=== PATIENT | female | born 1975 | race African-American/Black ===

== ENCOUNTER 2018-11-15 22:30 | Outpatient (CLI) | payer MEDICAID ==
[2018-11-16 00:49] VITALS: BP 127/59
[2018-11-16 02:08] LABS: Amorphous Crystals,Urine 1+; Bacteria,Urine 2+ /HPF (Negative); Bilirubin,Urine NEG (Negative); Blood,Urine NEG (Negative); Color,Urine Yellow (Yellow); Hyaline Casts,Urine 1 /LPF; Protein,Urine <15 mg/dL mg/dL (Negative); Urobilinogen,Urine < 2.0 mg/dL (<2.0)
== END 2018-11-16 02:46 | disposition home or self-care (01) ==
LOC: TRG 22:30
PROVIDERS: ATTEND Obstetrics & Gynecology
DX: O62.8 Other abnormalities of forces of labor (principal); Z3A.37 37 weeks gestation of pregnancy
CPT/HCPCS: 59025; 81001

== ENCOUNTER 2018-11-25 04:08 | Inpatient (IN) | payer MEDICAID ==
[2018-11-25] MEDS ORDERED: LACTATED RINGERS 1,000 ML ONE ×2 (04:14→05:20)
[2018-11-25] MEDS ORDERED: SUBLIMAZE IV PRN (04:23)
[2018-11-25] MEDS ORDERED: AMPICILLIN/NS 2 GM/100 ML 2 GM/100 ML BAG IV ONE (04:23)
[2018-11-25] MEDS ORDERED: BRETHINE SUB-Q PRN (04:23)
[2018-11-25] MEDS ORDERED: XYLOCAINE 2% INFILTRATI ONE (04:23)
--- NOTE | 2018-11-25 04:29 | History and Physical Report ---
History of Present Illness Date of examination: 11/25/18 Date of admission: 11/25/18 04:08 Chief complaint: Labor History of present illness: 43 year old female presents to L&D in active labor. Patient states her water broke around 3:15 AM and fluid was clear. Patient denies vaginal bleeding. Patient states she has received care at [facility]; records are not available. Records will be requested when office opens today. LMP 02/19/18. EDC 12/01/18. Patient states her has been uncomplicated. labs are not available and these have been drawn upon admission. 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 denies: smoking, prescription drug abuse, IV drug use - Obstetrical History Expected Date of Delivery: 11/25/18 Actual Gestation: 40 Week(s) 0 Day(s) : 3 Para: 2 Hx # Term Pregnancies: 3 Number of Pregnancies: 0 Spontaneous Abortions: 0 Induced : 0 Number of Living Children: 2 Medications and Allergies Allergies Allergy/AdvReac Type Severity Reaction Status Date / Time No Known Allergies Allergy Verified 11/25/18 04:17 Home Medications Medication Instructions Recorded Confirmed Last Taken Type Ibuprofen [Motrin 600 MG tab] 600 mg PO Q6HR #30 tablet 03/04/16 Unknown Rx Active Meds: Active Medications Ephedrine Sulfate (Ephedrine Sulfate) 10 mg IV Q2M PRN PRN Reason: Hypotension Fentanyl (Sublimaze) 100 mcg IV Q2H PRN PRN Reason: Labor Pain Oxytocin/Sodium Chloride (Pitocin/Ns 20 Unit/1000ml Drip) 20 units in 1,000 mls @ 125 mls/hr IV DIRECT NEIL Lactated Ringer's (Lactated Ringers) 1,000 mls @ 125 mls/hr IV DIRECT NEIL Ampicillin Sodium (Polycillin/Ns 2 Gm/100 Ml) 2 gm in 100 mls @ 100 mls/hr IV ONCE ONE; Protocol Stop: 11/25/18 05:22 Oxytocin/Sodium Chloride (Pitocin/Ns 30 Unit/500ml) 30 units in 500 mls @ 1 mls/hr IV TITR NEIL; Protocol Ampicillin Sodium (Ampicillin/Ns 1 Gm/50 Ml) 1 gm in 50 mls @ 100 mls/hr IV Q4HR NEIL; Protocol Lidocaine (Xylocaine 2%) 20 ml INFILTRATI ONCE ONE Stop: 11/25/18 04:24 Terbutaline Sulfate (Brethine) 0.25 mg SUB-Q ONCE PRN PRN Reason: Hyperstimulation/Hypertonicity Review of Systems All systems: negative (contractions and leaking of fluid from vagina) - Physical Exam Abdomen: Positive: normal appearance, soft, normal bowel sounds. Negative: distention, tenderness, rigidity Genitourinary (Female): Positive: normal external genitalia, normal perenium. Negative: perineal/vulvar lesions Uterus: Positive: enlarged Anus/Rectum: Positive: normal perianal skin Extremities: Positive: normal. Negative: tenderness, edema - Obstetrical FHR: category 2 Uterine Contraction Monitor Mode: External Cervical Dilatation: 8 Cervical Effacement Percentage: 100 station: -2 Uterine Contraction Pattern: Regular Uterine Contraction Intensity: Moderate Results All other labs normal. Assessment and Plan A: at 39 1/7 weeks gestation. Active advanced labor. GBS unknown. labs not available. P: Admit. GBS prophylaxis. EFM. Anticipate vaginal .
[2018-11-25] MEDS ORDERED: PITOCin/NS 20 UNIT/1000ML DRIP 20 UNITS/1,000 ML BAG IV SCH ×3 (05:00→15:00)
[2018-11-25] MEDS ORDERED: PITOCin/NS 30 UNIT/500ML 30 UNITS/500 ML BAG IV SCH (05:00)
[2018-11-25 05:08] LABS: Hemoglobin 11.3 gm/dl (10.1-14.3); Mean Corpuscular HGB Conc 33 % (30-34); Mean Corpuscular Volume 79 fl (79-97); Platelet Count 230 K/mm3 (140-440); Red Blood Count 4.31 M/mm3 (3.65-5.03); Red Cell Distribution Width 15.7 % (13.2-15.2)
[2018-11-25] MEDS ORDERED: NARCAN 2 MG/2 ML IV PRN (06:02)
[2018-11-25 06:04] LABS: Hepatitis C Virus Antibody Non-Reactive (NonReactive)
--- NOTE | 2018-11-25 06:04 | Anesthesia Consultation ---
Anesthesia Consult and Med Hx Date of service: 11/25/18 - Airway Anesthetic Teeth Evaluation: Good ROM Head & Neck: Adequate Mental/Hyoid Distance: Adequate Mallampati Class: Class II Intubation Access Assessment: Probably Good - Pulmonary Exam CTA: Yes - Cardiac Exam Cardiac Exam: RRR - Pre-Operative Health Status ASA Pre-Surgery Classification: ASA3 Proposed Anesthetic Plan: Epidural - Pulmonary Hx Smoking: No Hx Asthma: No Hx Respiratory Symptoms: No SOB: No COPD: No Home Oxygen Therapy: No Hx Pneumonia: No Hx Sleep Apnea: No - Cardiovascular System Hx Hypertension: No Hx Coronary Artery Disease: No Hx Heart Attack/AMI: No Hx Angina: No Hx Percutaneous Transluminal Coronary Angioplasty (PTCA): No Hx Cardia Arrhythmia: No Hx Pacemaker: No Hx Internal Defibrillator: No Hx Valvular Heart Disease: No Hx Heart Murmur: No Hx Peripheral Vascular Disease: No - Central Nervous System Hx Neuromuscular Disorder: No Hx Seizures: No CVA: No Hx Back Pain: No Hx Psychiatric Problems: No - Gastrointestinal Hx Ulcer: No Hx Gastroesophageal Reflux Disease: Yes - Endocrine Hx Renal Disease: No Hx End Stage Renal Disease: No Hx Cirrhosis: No Hx Liver Disease: No Hx Insulin Dependent Diabetes: No Hx Non-Insulin Dependent Diabetes: No Hx Thyroid Disease: No Hx Hypothyroidism: No Hx Hyperthyroidism: No - Hematic Hx Anemia: No Hx Sickle Cell Disease: No - Other Systems Hx Alcohol Use: No Hx Substance Use: No Hx Cancer: No Hx Obesity: Yes (BMI 36.6)
--- NOTE | 2018-11-25 06:05 | Post Anesthesia Evaluation ---
- Post Anesthesia Evaluation Patient Participated: Yes Airway Patent: Yes Stable Respiratory Function: Yes Nausea/Vomiting: No Temp > 96.8F: Yes Pain Manageable: Yes Adequeate Hydration: Yes Anesthesia Complications: No Block Receding Appropriately: Yes Patient on Ventilator: No
--- NOTE | 2018-11-25 06:05 | Anesthesia Day of Surgery ---
Anesthesia Day of Surgery - Day of Surgery Patient Examined: Yes Patient H&P Reviewed: Yes Patient is NPO: Yes Beta Blockers: No Cardiac Clearance: No Pulmonary Clearance: No Fernando's Test: N/A
[2018-11-25] MEDS ORDERED: fentaNYL-BUPIV 2 MCG/ML-0.125% 200 MCG/100 ML BAG EPIDURAL SCH (07:00)
--- NOTE | 2018-11-25 07:02 | Ultrasound Report ---
PROCEDURE: US OB FOLLOW UP TECHNIQUE: Limited third trimester grayscale, color Doppler and M-mode OB ultrasound HISTORY: EFW COMPARISONS: None provided FINDINGS: Single living intrauterine with recorded cardiac activity 146 beats per. Cephalic presentation. Anterior placenta without evident previa on this exam. Amniotic fluid index me asures 9.6 cm. Biparietal diameter is 9.5 cm Head circumference is 35.6 cm Abdominal circumference is 35.5 cm Femoral length is 6.9 cm Composite of the biometric measurements results in estimated gestational age of 38 weeks 5 days , which is concordant with reported clinical dating of 39 weeks 1 day. Estimated weight is 3563 g, which corresponds to the 59th percentile. IMPRESSION: Single living intrauterine with concordant size and dates and estimated weight of 356 3 g, which corresponds to the 59th percentile. This document is electronically signed by Ha Schmidt MD., Nov 25 2018 07:00:39 AM ET
[2018-11-25] MEDS: LACTATED RINGERS 1,000 ML IV SCH (07:22)
[2018-11-25] MEDS ORDERED: MARCAINE 0.25% INFILTRATI ONE (08:11)
--- NOTE | 2018-11-25 08:19 | Event Note ---
Date: 11/25/18 Patient came in with SROM this morning and was 8 cm on SVE at admission exam by CNM. She progressed slowly to complete. At complete dilation patient was 0 station. Patient was positoned in upright position with lateral tilt to labor down. After over an hour of laboring down, patient began to feel strong urge to push. Patient pushed with contractions intermittently for about 35 minutes. With descent of head to +1 station, deep variable FHR decelerations noted, decreasing to 60s-80s with return to baseline. Minimal to moderate variability. Oxygen applied per face mask at 10 LPM. Patient encouraged to rest and avoid pushing and MD notified to come and evaluate heart rate tracing and expedite delivery. Notified oncoming wind farm designer, education counselor MD, and oncoming MD of situation. Lab notified us of rapid HIV positive test; patient denies history of HIV and states she has had 2 negative HIV tests during this . Will request records from [facility] as soon as the office opens. Continuous EFM and oxygen per face mask. Position change to encourage head to rotate.
[2018-11-25] MEDS ORDERED: AMPICILLIN/NS 1 GM/50 ML 1 GM/50 ML BAG IV SCH (08:28)
[2018-11-25] MEDS ORDERED: REGLAN IV ONE (10:00)
[2018-11-25] MEDS ORDERED: ANCEF/STERILE WATER 2 GM/20 ML 2 GM/20 ML SYRINGE IV NR (10:00)
[2018-11-25] MEDS ORDERED: PEPCID IV ONE ×2 (10:00→10:18)
[2018-11-25] MEDS ORDERED: BICITRA PO ONE (10:00)
[2018-11-25] MEDS ORDERED: LACTATED RINGERS 1,000 ML IV SCH (10:00)
[2018-11-25] MEDS ORDERED: XYLOCAINE 2%/ EPI 1:200,000 INFILTRATI ONE (10:06)
[2018-11-25] MEDS ORDERED: REGLAN ONE (10:17)
[2018-11-25] MEDS ORDERED: BICITRA ONE (10:17)
[2018-11-25] MEDS ORDERED: METHERGINE IM ONE ×2 (10:18→15:00)
[2018-11-25] MEDS ORDERED: ANCEF/STERILE WATER 2 GM/20 ML 2 GM/20 ML SYRINGE IV ONE (10:18)
[2018-11-25] MEDS ORDERED: HEMABATE IM ONE (10:19)
--- NOTE | 2018-11-25 10:23 | Progress Note ---
Assessment and Plan - Patient Problems (1) 39 weeks gestation of Current Visit: Yes Status: Acute (2) Non-reassuring electronic monitoring tracing Current Visit: Yes Status: Acute Plan to address problem: I counselled the patient for C/section. Risks and benefits of the procedure were discussed with her such as infection, hemorrhage requiring blood transfusion, injury to the bowel, bladder and blood vessels. She expressed understanding, her questions were answered, she gave her informed consent. Keep NPO. Anesthesia has been notified. Epidural in place. Continue monitoring. (3) Advanced maternal age (AMA) in Current Visit: Yes Status: Acute (4) Obesity Current Visit: Yes Status: Acute Qualifiers: Obesity type: due to excess calories (5) HIV antibody positive Current Visit: Yes Status: Acute Plan to address problem: This result was discussed with the patient. She was told that since she came in active labor with membranes rupture for over 3 hours, C/section would not change in outcome for the baby in case her confirmatory is positive. However, she is having the C/section for distress. She expressed understanding. Her records were requested from [facility] and still are not received yet. P24 antigen was negative. Confirmatory HIV DNA is pending. NICU was made aware. Nurse practitioner Karina came and spoke with the patient about treating the baby while confirmatory HIV DNA is pending Subjective - Subjective Date of service: 11/25/18 Principal diagnosis: SIUP at 39 weeks and 1 day in active labor. Interval history: Patient is a 43 year old , EDC 12/01/18 at 39 weeks and 1 day gestation who was admitted earlier this AM in active labor at 8 cm dilatation and SROM with clear fluid at 3:30 AM. She is a patient of [facility] whose records were not available on admission. Therefore, routine labs were sent. Rapid HIV was reactive. Patient denies any risk factor such as history of blood transfusion, IV drug abuse, needle stick. She is only sexually active with her . She stated that during her , all her tests were normal and she was tested for HIV on 11/07/18 and it was negative. P24 antigen is negative. Confirmatory HIV DNA were sent. I was asked to assess the patient for variables decelerations by the package dye stand loader. I found her lying on her right side with epidural in place. tracing showed repetitive late decelerations. Cervix: fully dilated with the vertex at -1 station. left sided-position, O2 via face mask, IV bolus were given. The the tracing is still CAT3. Objective - Vital Signs Vital Signs: Vital Signs - 12hr 11/25/18 11/25/18 11/25/18 05:45 05:46 05:49 Temperature Pulse Rate 62 67 80 Respiratory Rate Blood Pressure 133/63 124/56 O2 Sat by Pulse 100 Oximetry 11/25/18 11/25/18 11/25/18 05:50 05:52 05:55 Temperature Pulse Rate 86 88 82 Respiratory Rate Blood Pressure 124/63 115/57 O2 Sat by Pulse 100 Oximetry 11/25/18 11/25/18 11/25/18 05:58 06:01 06:03 Temperature Pulse Rate 91 H 79 78 Respiratory Rate Blood Pressure 125/64 108/54 118/56 O2 Sat by Pulse Oximetry 11/25/18 11/25/18 11/25/18 06:07 06:08 06:10 Temperature Pulse Rate 160 H 82 86 Respiratory Rate Blood Pressure 125/60 127/64 O2 Sat by Pulse 100 Oximetry 11/25/18 11/25/18 11/25/18 06:13 06:17 06:18 Temperature Pulse Rate 79 137 H 84 Respiratory Rate Blood Pressure 130/56 107/49 O2 Sat by Pulse 100 100 Oximetry 11/25/18 11/25/18 11/25/18 06:19 06:23 06:28 Temperature Pulse Rate 150 H 64 72 Respiratory Rate Blood Pressure 112/78 O2 Sat by Pulse 77 L 96 Oximetry 11/25/18 11/25/18 11/25/18 06:29 06:33 06:34 Temperature Pulse Rate 65 74 141 H Respiratory Rate Blood Pressure 114/62 O2 Sat by Pulse 91 100 Oximetry 11/25/18 11/25/18 11/25/18 06:37 06:38 06:40 Temperature Pulse Rate 71 82 87 Respiratory Rate Blood Pressure 119/67 122/69 O2 Sat by Pulse 100 Oximetry 11/25/18 11/25/18 11/25/18 06:43 06:46 06:48 Temperature Pulse Rate 78 79 83 Respiratory Rate Blood Pressure 112/67 122/76 O2 Sat by Pulse 100 100 Oximetry 11/25/18 11/25/18 11/25/18 06:49 06:52 06:53 Temperature Pulse Rate 81 78 78 Respiratory Rate Blood Pressure 128/72 132/72 O2 Sat by Pulse 100 Oximetry 11/25/18 11/25/18 11/25/18 06:55 06:58 07:01 Temperature Pulse Rate 72 77 76 Respiratory Rate Blood Pressure 132/70 140/68 144/68 O2 Sat by Pulse 100 Oximetry 11/25/18 11/25/18 11/25/18 07:03 07:05 07:07 Temperature Pulse Rate 74 80 80 Respiratory Rate Blood Pressure 143/99 139/62 O2 Sat by Pulse 100 Oximetry 11/25/18 11/25/18 11/25/18 07:08 07:10 07:13 Temperature Pulse Rate 82 76 85 Respiratory Rate Blood Pressure 139/63 O2 Sat by Pulse 100 100 Oximetry 11/25/18 11/25/18 11/25/18 07:14 07:16 07:18 Temperature 97.8 F Pulse Rate 82 87 82 Respiratory 22 Rate Blood Pressure 153/63 131/63 O2 Sat by Pulse 99 100 Oximetry 11/25/18 11/25/18 11/25/18 07:19 07:22 07:23 Temperature Pulse Rate 77 78 84 Respiratory Rate Blood Pressure 128/60 128/68 O2 Sat by Pulse 100 Oximetry 11/25/18 11/25/18 11/25/18 07:25 07:28 07:29 Temperature Pulse Rate 80 84 86 Respiratory Rate Blood Pressure 124/81 138/60 O2 Sat by Pulse 99 Oximetry 11/25/18 11/25/18 11/25/18 07:31 07:37 07:40 Temperature Pulse Rate 106 H 83 84 Respiratory Rate Blood Pressure 164/88 119/58 138/67 O2 Sat by Pulse Oximetry 11/25/18 11/25/18 11/25/18 07:43 07:46 07:49 Temperature Pulse Rate 81 82 107 H Respiratory Rate Blood Pressure 129/61 126/58 139/61 O2 Sat by Pulse Oximetry 11/25/18 11/25/18 11/25/18 07:52 07:56 07:58 Temperature Pulse Rate 100 H 96 H 96 H Respiratory Rate Blood Pressure 140/63 156/76 138/61 O2 Sat by Pulse Oximetry 11/25/18 11/25/18 11/25/18 08:02 08:05 08:07 Temperature Pulse Rate 95 H 86 93 H Respiratory Rate Blood Pressure 161/73 135/59 162/74 O2 Sat by Pulse Oximetry 11/25/18 11/25/18 05/ 08:10 08:14 08:16 Temperature Pulse Rate 95 H 88 85 Respiratory Rate Blood Pressure 131/57 158/63 135/64 O2 Sat by Pulse Oximetry 11/25/18 11/25/18 05 08:19 08:22 08:25 Temperature Pulse Rate 100 H 102 H 103 H Respiratory Rate Blood Pressure 140/63 140/64 135/58 O2 Sat by Pulse Oximetry 11/25/18 11/25/18/ 08:28 08:31 08:38 Temperature Pulse Rate 98 H 97 H 97 H Respiratory Rate Blood Pressure 124/56 131/58 141/72 O2 Sat by Pulse Oximetry 11/25/18 11/25/18 11/25/18 08:40 08:43 08:46 Temperature Pulse Rate 102 H 86 83 Respiratory Rate Blood Pressure 136/57 127/60 116/56 O2 Sat by Pulse Oximetry 11/25/18 11/25/18 11/25/18 08:49 08:52 08:55 Temperature Pulse Rate 107 H 105 H 101 H Respiratory Rate Blood Pressure 118/72 114/58 121/62 O2 Sat by Pulse Oximetry 11/25/18 11/25/18 05 08:58 09:01 09:04 Temperature Pulse Rate 99 H 88 110 H Respiratory Rate Blood Pressure 114/67 125/68 118/64 O2 Sat by Pulse Oximetry 11/25/18 11/25/18 05 09:06 09:07 09:10 Temperature Pulse Rate 87 93 H 93 H Respiratory Rate Blood Pressure 109/65 110/57 114/57 O2 Sat by Pulse Oximetry 11/25/18 11/25/18 05 09:13 09:16 09:19 Temperature Pulse Rate 109 H 123 H 117 H Respiratory Rate Blood Pressure 112/54 112/67 124/55 O2 Sat by Pulse Oximetry 11/25/18 11/25/18 05 09:22 09:25 09:28 Temperature Pulse Rate 116 H 120 H 133 H Respiratory Rate Blood Pressure 113/58 106/57 109/58 O2 Sat by Pulse Oximetry 11/25/18 11/25/18 05 09:31 09:34 09:37 Temperature Pulse Rate 137 H 133 H 123 H Respiratory Rate Blood Pressure 110/57 110/60 139/77 O2 Sat by Pulse Oximetry 11/25/18 11/25/18 11/25/18 09:40 09:46 09:49 Temperature Pulse Rate 114 H 114 H 110 H Respiratory Rate Blood Pressure 110/53 114/53 106/51 O2 Sat by Pulse Oximetry 11/25/18 11/25/18 11/25/18 09:52 09:55 09:58 Temperature Pulse Rate 116 H 111 H 116 H Respiratory Rate Blood Pressure 108/53 95/48 96/50 O2 Sat by Pulse Oximetry 11/25/18 10:01 Temperature Pulse Rate 110 H Respiratory Rate Blood Pressure 98/56 O2 Sat by Pulse Oximetry - Exam Cardiovascular: Normal S1, Normal S2 Lungs: Clear to auscultation Vulva: both: normal FHR: category 3 Uterine Contraction Monitor Mode: External Cervical Dilatation: 10 Cervical Effacement Percentage: 100 station: -1 Uterine Contraction Pattern: Regular Uterine Contraction Intensity: Strong/Firm Deep Tendon Reflex Grade: Normal +2 - Labs Labs: Abnormal Labs 11/25/18 04:20 MCH 26 L RDW 15.7 H Laboratory Results - last 24 hr 11/25/18 11/25/18 11/25/18 04:20 04:20 04:20 WBC 9.9 RBC 4.31 Hgb 11.3 Hct 34.0 MCV 79 MCH 26 L MCHC 33 RDW 15.7 H Plt Count 230 Hemoglobin A1c Hep Bs Antigen Non-reactive Hepatitis C Antibody Non-reactive HIV 1&2 Antibody Rapid Reactive HIV P24 Antigen Non react Rubella IgG Antibody Immune Blood Type 11/25/18 11/25/18 04:20 04:20 WBC RBC Hgb Hct MCV MCH MCHC RDW Plt Count Hemoglobin A1c 5.5 Hep Bs Antigen Hepatitis C Antibody HIV 1&2 Antibody Rapid HIV P24 Antigen Rubella IgG Antibody Blood Type O POSITIVE - Results US- obstetric: report reviewed
[2018-11-25] MEDS ORDERED: SODIUM BICARBONATE IV ONE (11:02)
[2018-11-25] MEDS ORDERED: NACL 0.9% IR ONE (11:30)
[2018-11-25] MEDS ORDERED: WATER FOR IRRIG STERILE IR ONE (11:30)
[2018-11-25] MEDS ORDERED: TORADOL ONE (11:41)
[2018-11-25] MEDS ORDERED: PHENERGAN PR PRN (11:46)
[2018-11-25] MEDS ORDERED: TUCKS PAD TP PRN (11:46)
[2018-11-25] MEDS ORDERED: LANSINOH TP PRN (11:46)
[2018-11-25] MEDS ORDERED: MORPHINE IV PRN ×2 (11:46)
[2018-11-25] MEDS ORDERED: SENOKOT PO PRN (11:46)
[2018-11-25] MEDS ORDERED: TYLENOL PO PRN (11:46)
[2018-11-25] MEDS ORDERED: MYLICON PO PRN (11:46)
[2018-11-25] MEDS ORDERED: TORADOL IV PRN (11:46)
[2018-11-25] MEDS ORDERED: ANUCORT-HC PR PRN (11:46)
[2018-11-25] MEDS ORDERED: ZOFRAN IV PRN (11:46)
[2018-11-25] MEDS ORDERED: NARCAN 0.4 MG/1 ML IV PRN (11:46)
[2018-11-25] MEDS ORDERED: MILK OF MAGNESIA PO PRN (11:46)
--- NOTE | 2018-11-25 11:53 | Operative Report ---
Operative Report Operative Report: Preoperative diagnosis 1. SIUP at 39 weeks and 1 day gestation in active labor. 2. CAT3 tracing. Postoperative diagnosis: Same. Procedure: Primary low-transverse section. Surgeon: Dr. Brunner Loom Doffer: none Anesthesia: epidural. IVF: RL 1.5 liters EBL: 600 cc Urine: 200 cc clear Complications: none Intraoperative findings: 1. A male found in an ARIA position, tight nuchal cord 1, delivered at 10:54 AM, Apgars 7 at 1 minute and 9 at 5 minutes, weight 8 lbs. 11 oz. 2. Normal fallopian tubes and ovaries bilaterally. Procedure details: Risks, benefits, and alternatives of the procedure were discussed in detail with the patient which included but not limited to the risk of infection, hemorrhage requiring blood transfusion, injury to the bowel or bladder and blood vessels. The patient expressed understanding, her questions were answered, and she gave informed consent. The patient was taken to the operating room with an IV fluid infusing Ringers lactate. In the operating room, she was placed in a dorsal supine position with a leftward tilt. She was loaded with epidural anesthesia. Ricardo catheter in Venodyne boots were placed. The abdomen was washed and she was prepared and draped in usual sterile fashion. After confirming adequate epidural anesthesia, the Pfannenstiel skin incision was made in the lower abdomen about 2 cm above the pubic symphysis using the scalpel. This incision was carried down to the underlying fascia using the Bovie. The fascia was opened bilaterally in a curvilinear fashion using the Bovie. 2 straight Kocker clamps were used to grasp the upper edge of the fascia from which the underlying rectus abdominis muscles was dissected off using the Bovie. A similar procedure was done with the lower edge of the fascia to dissect the underlying rectus abdominis muscle. The muscle was bluntly from the midline by pulling. The parietal peritoneum was grasped with 2 hemostat clamps and entered sharply using Metzenbaum scissors. A quick survey of the anatomy revealed a gravid uterus, normal fallopian tubes and ovaries bilaterally. A bladder flap was created. Shayne'O retractor was placed in the incision for proper visualization. A low transverse incision was made in the lower uterine segment using the scalpel and extended bilaterally in a curvilinear fashion using bandage scissors. There was scant amount of clear amniotic fluid as the membranes have been ruptured during the labor. The infant was found in an ARIA position, the head was delivered atraumatically followed by the delivery of the shoulders and the rest of the body at 10:54 AM. There was tight nuchal cord 1. The cord was clamped 2 and cut and the was handed off to the waiting telephone cleaner. The infant was a male, Apgars were 7 at 1 minute and 9 at 5 minutes, weight was 8 pounds and 11 ounces. Cord blood was collected. The placenta was delivered manually and it was complete with a three-vessel cord. The uterine cavity was cleaned of clots and debris using dry lap sponges. The uterine incision was repaired in a running locked fashion using 0 Vicryl sutures. A second layer of imbrication was placed. The gutters were cleaned of clots and debris using dry lap sponges. After confirming adequate hemostasis, the instruments were removed from the abdominal cavity. The rectus muscle was reapproximated in an interrupted fashion using 0 Vicryl sutures. The fascia was closed in a running fashion using 0 Vicryl sutures. The subcutaneous adipose layer was closed with 2.0 chromic sutures. The skin was closed with dirk. Sterile dressing was placed. The counts of laps, needles, sponges, and instruments were correct 2. The patient tolerated the procedure well, she was taken to the recovery room in a stable condition.
[2018-11-25] MEDS ORDERED: SODIUM CHLORIDE FLUSH SYRINGE 10 ML IV NR (12:00)
--- NOTE | 2018-11-25 14:49 | Post Anesthesia Evaluation ---
- Post Anesthesia Evaluation Patient Participated: Yes Airway Patent: Yes Stable Respiratory Function: Yes Nausea/Vomiting: Yes Temp > 96.8F: Yes Pain Manageable: Yes Adequeate Hydration: Yes Anesthesia Complications: No Block Receding Appropriately: Yes Patient on Ventilator: No
[2018-11-25] MEDS: TORADOL IV PRN (16:06)
[2018-11-25] MEDS: PERCOCET 5/325 PO PRN (20:19)
[2018-11-25 23:55] LABS: Hematocrit 26.8 % (30.3-42.9); Hemoglobin 8.8 gm/dl (10.1-14.3)
[2018-11-26] MEDS: TORADOL IV PRN ×2 (00:06→09:24)
[2018-11-26] MEDS: LACTATED RINGERS 1,000 ML IV SCH (01:50)
[2018-11-26] MEDS: PERCOCET 5/325 PO PRN ×3 (04:50→21:41)
[2018-11-26] MEDS: PRENATAL VITAMIN PO SCH (09:23)
[2018-11-26] MEDS ORDERED: METHERGINE IM ONE (10:00)
[2018-11-26] MEDS ORDERED: FEOSOL PO SCH (10:00)
[2018-11-26] MEDS ORDERED: INFED IM NR (10:30)
--- NOTE | 2018-11-26 11:25 | Progress Note ---
Assessment and Plan - Patient Problems (1) S/P section Current Visit: Yes Status: Acute Plan to address problem: Continue routine PP orders Keep dressing clean and dry Anticipate d/c home in 48 hrs (2) HIV antibody positive Current Visit: Yes Status: Acute Plan to address problem: Awaiting HIV DNA confirmation results (3) Obesity Current Visit: Yes Status: Acute Qualifiers: Obesity type: unspecified obesity type Obesity classification: unspecified obesity classification (4) Advanced maternal age (AMA) in Current Visit: Yes Status: Acute Subjective - Subjective Date of service: 11/26/18 Principal diagnosis: S/P C/S delivery at term Interval history: See admission H & P, OB delivery summary and PP progress notes Patient reports: appetite normal, voiding normally, pain well controlled, fl atus, pain poorly controlled (with medications), ambulating normally (but slowly), no bowel movement [place]: bottle feeding Objective - Vital Signs Latest vital signs: Vital Signs Temp Pulse Resp BP BP Pulse Ox 11/26/18 09:24 20 11/26/18 08:53 98.6 F 85 22 105/56 97 11/26/18 04:47 98.0 F 16 117/70 11/26/18 00:11 98.6 F 103/58 11/25/18 21:12 98.6 F 18 102/57 11/25/18 16:06 18 11/25/18 15:59 98.1 F 94 H 18 119/61 96 11/25/18 13:40 97.5 F L 95 H 16 115/55 97 11/25/18 13:05 98.9 F 99 H 24 135/76 98 11/25/18 13:00 90 22 132/75 97 11/25/18 12:45 89 22 144/79 97 11/25/18 12:30 92 H 22 144/80 97 11/25/18 12:15 105 H 22 141/83 97 11/25/18 12:05 95 H 22 131/50 97 11/25/18 12:00 96 H 20 120/69 96 11/25/18 11:55 97.7 F 98 H 20 111/60 96 Intake and Output 11/25/18 11/26/18 11/26/18 23:59 07:59 15:59 Intake Total 200 360 Output Total 1150 800 Balance -950 -800 360 Intake: Oral 200 120 Intake, Free Water 240 Output: Urine 1150 800 Indwelling Catheter 1150 Void 800 Other: Total, Intake Amount 200 120 Total, Output Amount 700 800 # Voids Void 1 1 - Exam Breasts: Present: deferred Cardiovascular: Present: Regular rate Lungs: Present: Normal air movement Abdomen: Present: soft, tenderness, normal bowel sounds Uterus: Present: firm, fundal height below umbilicus (U-1) Extremities: Present: normal Deep Tendon Reflex Grade: Normal +2 Incision: Present: dressed (no shawdow bleeding or drainage noted) - Labs Labs: Abnormal lab results 11/25/18 Range/Units 23:03 Hgb 8.8 L (10.1-14.3) gm/dl Hct 26.8 L D (30.3-42.9) %
[2018-11-26] MEDS: IBUPROFEN PO PRN ×2 (16:11→21:42)
[2018-11-26] MEDS: FEOSOL PO SCH (21:39)
[2018-11-27] MEDS: PERCOCET 5/325 PO PRN (06:06)
[2018-11-27] MEDS: IBUPROFEN PO PRN ×3 (06:06→17:56)
[2018-11-27 07:05] LABS: Hematocrit 27.1 % (30.3-42.9); Hemoglobin 8.8 gm/dl (10.1-14.3)
--- NOTE | 2018-11-27 10:23 | Progress Note ---
Assessment and Plan A: POD #2 Stable Anemia P: Follow Routine PostOp Orders D/C Home today per patient request Continue FeSO4 as directed RTO in 1 Week for incision check Subjective - Subjective Date of service: 11/27/18 Principal diagnosis: S/P C/S delivery at term Patient reports: appetite normal, voiding normally, pain well controlled, flatus, ambulating normally : doing well, bottle feeding Objective - Vital Signs Latest vital signs: Vital Signs Temp Pulse Resp BP BP Pulse Ox 11/27/18 08:05 97.6 F 67 16 113/61 96 11/27/18 06:06 18 11/27/18 00:49 98.5 F 78 18 95/53 97 11/26/18 21:42 18 11/26/18 21:41 18 11/26/18 17:03 98.2 F 82 20 117/55 96 11/26/18 16:12 20 11/26/18 16:11 20 11/26/18 12:08 98.8 F 84 22 101/54 95 Intake and Output 11/26/18 11/27/18 11/27/18 22:59 06:59 14:59 Intake Total 720 Balance 720 Intake: Oral 240 Intake, Free Water 480 Other: Total, Intake Amount 240 # Voids Void 2 - Exam Breasts: Present: normal Cardiovascular: Present: Regular rate Lungs: Present: Clear to auscultation, Normal air movement Abdomen: Present: normal appearance, soft Uterus: Present: normal, firm, fundal height below umbilicus Extremities: Present: normal Incision: Present: normal, dry, intact, other (dirk in place) - Labs Labs: Abnormal lab results 11/27/18 Range/Units 06:55 Hgb 8.8 L (10.1-14.3) gm/dl Hct 27.1 L (30.3-42.9) %
[2018-11-27] MEDS: PRENATAL VITAMIN PO SCH (10:51)
[2018-11-27] MEDS: FEOSOL PO SCH ×2 (10:52→22:19)
[2018-11-28] MEDS: IBUPROFEN PO PRN ×2 (02:08→14:05)
[2018-11-28] MEDS: FEOSOL PO SCH (09:58)
[2018-11-28] MEDS: PRENATAL VITAMIN PO SCH (09:58)
--- NOTE | 2018-11-28 11:30 | Progress Note ---
Assessment and Plan (1) S/P section Current Visit: Yes Status: Acute Plan to address problem: Continue routine PP/PO orders Encouraged ambulation in room Pain well controlled Stable D/C home today (2) HIV antibody positive Current Visit: Yes Status: Acute Plan to address problem: Rapid HIV positive x2 HIV DNA confirmation results NEGATIVE Pt informed of these results. Tearful with the news. Reports 2 Negative HIV tests during and only being with her . Informed that peds will decide if treatment will continue with baby. Per consult with Dr. Brunner: will redraw HIV test in 6 weeks. No current treatment recommended. Subjective - Subjective Date of service: 11/28/18 Principal diagnosis: POD#3 s/p Primary c/s at term Patient reports: appetite normal, voiding normally, pain well controlled, flatus, ambulating normally, no bowel movement Ira: doing well, other (pumping breasts with desire to breastfeed) Objective - Vital Signs Latest vital signs: Vital Signs Temp Pulse Resp BP BP Pulse Ox 11/28/18 08:02 98.1 F 72 18 122/63 11/28/18 02:08 18 11/28/18 00:33 98.3 F 76 20 114/59 97 11/27/18 16:21 97.2 F L 86 16 133/66 96 Intake and Output 11/27/18 11/28/18 11/28/18 23:59 07:59 15:59 Intake Total 240 240 Balance 240 240 Intake: Oral 240 240 Other: Total, Intake Amount 240 240 # Voids Void 1 1 - Exam Breasts: Present: normal Cardiovascular: Present: Regular rate, Normal S1, Normal S2, No murmurs Lungs: Present: Clear to auscultation, Normal air movement Abdomen: Present: normal appearance, soft, tenderness (as expected post-op). Absent: distention Vulva: both: normal Uterus: Present: firm, fundal height at umbilicus Extremities: Present: normal, edema (+2) Deep Tendon Reflex Grade: Normal +2 Incision: Present: normal, dry, intact
--- NOTE | 2018-11-28 11:32 | Discharge Summary ---
Providers - Providers Date of Admission: 11/25/18 04:08 Date of discharge: 11/28/18 Attending physician: ANNETTA WOOD MD 11/25/18 15:32 Consult to Case Management [CONS] Routine Services Needed at Discharge: Cleaning Associate Notified:: [id number] Was contact made?: No Primary care physician: RADHA RENAE Hospitalization Reason for admission: active labor, IUP at term Delivery: Procedure: primary low transverse Procedure details: See H&P and delivery note Episiotomy: none Laceration: none Incision: normal, dry, intact Other procedures: none complications: none Discharge diagnosis: IUP at term delivered baby: male Hospital course: Rapid HIV reactive x2. Confirmatory DNA Negative. Condition at discharge: Good Disposition: DC-01 TO HOME OR SELFCARE Plan - Provider Discharge Summary Activity: routine, no sex for 6 weeks, no heavy lifting 4 weeks, no strenuous exercise Diet: routine Instructions: routine Additional instructions: [] Smoking cessation referral if applicable(refer to patient education folder for contact #) [] Refer to [facility] Booklet Call your doctor immediately for: * Fever > 100.5 * Heavy vaginal bleeding ( >1 pad per hour) * Severe persistent headache * Shortness of breath * Reddened, hot, painful area to leg or breast * Drainage or odor from incision. * Keep incision clean and dry at all times and follow doctor's instructions regarding bathing/showering - Follow up plan Follow up: RADHA RENAE MD [Primary Care Provider] - 7 Days
[2018-11-28 14:45] VITALS: BP 113/56
[2018-11-28 21:27] LABS: HIV-1 RNA QN PCR <1.30 Log cps/mL; HIV-1 RNA QN PCR <20 Copies/mL
[2018-11-29 11:52] LABS: HIV-1 Antibody Differentiation SE SCANNED RESULT; HIV-2 Antibody Differentiation SEE SCANNED RESULT
== END 2018-11-28 14:15 | disposition home or self-care (01) | DRG 765 ==
LOC: LD 04:08 → OB 14:06
PROVIDERS: ADMIT Obstetrics & Gynecology; ATTEND Obstetrics & Gynecology
PROC: 10D00Z1 Extraction of Products of Conception, Low, Open Approach (ICD-10-PCS; principal; 2018-11-25)
DX: O99.62 Diseases of the digestive system complicating childbirth (principal); D62 Acute posthemorrhagic anemia; O76 Abnormality in fetal heart rate and rhythm complicating labor and delivery; Z3A.39 39 weeks gestation of pregnancy; Z37.0 Single live birth; K21.9 Gastro-esophageal reflux disease without esophagitis; E66.9 Obesity, unspecified; O69.1XX0 Labor and delivery complicated by cord around neck, with compression, not applicable or unspecified; Z21 Asymptomatic human immunodeficiency virus [HIV] infection status; O99.214 Obesity complicating childbirth; O90.81 Anemia of the puerperium
CPT/HCPCS: 36415; 76816; 83036; 85014; 85018; 85027; 86592; 86689; 86706; 86762; 86803; 86850; 86900; 86901; 87535; 87536; 87806; G0378; J0290; J0690; J1750; J1885; J2210; J2590; J2765; J3010; J3105; J7120

== ENCOUNTER 2021-04-17 17:56 | Emergency (ER) | payer MEDICAID, OTHER ==
[2021-04-17 18:28] VITALS: BP 127/70
--- NOTE | 2021-04-17 19:15 | Emergency Department Report ---
ED General Adult HPI - General Chief complaint: Upper Respiratory Infection Stated complaint: COUGHING, AND VOMITTING Time Seen by Provider: 04/17/21 18:52 Source: patient Mode of arrival: Ambulatory Limitations: No Limitations - History of Present Illness Initial comments: 45 y/o female pt presents to ED w/ complaints of productive cough for one month, worsening for the last two days. Patient states she was evaluated by her primary care provider earlier this month. She tested negative for COVID-19 twice. She was given intranasal steroid and oral antihistamine with limited relief. Patient does not smoke. Patient has no known history of lung problems. No sick contacts. No recent travel. No current steroid or antibiotic use. Denies fever, chills, chest pain, shortness of breath, hemoptysis. Denies all other complaints at this time. Severity scale (0 -10): 0 - Related Data Previous Rx's Medication Instructions Recorded Last Taken Type Ibuprofen [Motrin 600 MG tab] 600 mg PO Q6HR #30 tablet 03/04/16 Unknown Rx Albuterol Sulfate [Proair 90 mcg INHALATION Q6H #1 aer.pow.ba 04/17/21 Unknown Rx Respiclick] Amoxicillin [Trimox CAP] 1,000 mg PO Q8H 7 Days capsule 04/17/21 Unknown Rx Azithromycin [Zithromax Z-KENN] 250 mg PO DAILY 5 Days #6 tablet 04/17/21 Unknown Rx Benzonatate [Tessalon Perles] 200 mg PO Q8HR #30 capsule 04/17/21 Unknown Rx Allergies Allergy/AdvReac Type Severity Reaction Status Date / Time No Known Allergies Allergy Verified 11/25/18 04:17 ED Review of Systems ROS: Stated complaint: COUGHING, AND VOMITTING Other details as noted in HPI Other: GENERAL: Negative for fever, chills, weight change, anorexia, fatigue. ENT: Negative for ear pain, difficulty hearing, sore throat, nasal congestion, epistaxis. CARDIOVASCULAR: Negative for chest pain, palpitations, lower extremity swelling. PULMONARY: Positive for cough. GASTROINTESTINAL: Negative for abdominal pain, nausea, vomiting, diarrhea, constipation. MUSCULOSKELETAL: Negative for joint pain, joint swelling, myalgias, back pain, neck pain. NEUROLOGICAL: Negative for headache, seizure, syncope, paresthesias, weakness. INTEGUMENTARY: Negative for erythema, rash, diaphoresis, laceration, ecchymosis. HEMATOLOGICAL: Negative for hemoptysis, hematemesis, hematochezia, hematuria. PSYCHIATRIC: Negative for hallucinations, suicidal ideation, homicidal ideation, anxiety, depression. ED Past Medical Hx - Past Medical History Hx Hypertension: No Hx Heart Attack/AMI: No Hx Diabetes: No Hx Deep Vein Thrombosis: No Hx Liver Disease: No Hx Renal Disease: No Hx Sickle Cell Disease: No Hx Seizures: No Hx Asthma: No Hx COPD: No Hx HIV: No - Surgical History Hx Pacemaker: No Hx Internal Defibrillator: No - Social History Smoking Status: Never Smoker Substance Use Type: None - Medications Home Medications: Home Medications Medication Instructions Recorded Confirmed Last Taken Type Ibuprofen [Motrin 600 MG tab] 600 mg PO Q6HR #30 tablet 03/04/16 11/25/18 Unknown Rx Albuterol Sulfate [Proair 90 mcg INHALATION Q6H #1 aer.pow.ba 04/17/21 Unknown Rx Respiclick] Amoxicillin [Trimox CAP] 1,000 mg PO Q8H 7 Days capsule 04/17/21 Unknown Rx Azithromycin [Zithromax Z-KENN] 250 mg PO DAILY 5 Days #6 tablet 04/17/21 Unknown Rx Benzonatate [Tessalon Perles] 200 mg PO Q8HR #30 capsule 04/17/21 Unknown Rx ED Physical Exam - General Limitations: No Limitations - Other Other exam information: General: Awake and alert. No acute distress. Head: Atraumatic, normocephalic. Eyes: EOMI. Pupils are equal and round. Normal sclera and conjunctiva. ENT: Oral mucosa is moist. Normal pharyngeal exam. Neck: Supple. No lymphadenopathy. Pulmonary: No respiratory distress. Scattered expiratory wheezing bilaterally. Cardiac: Regular rate and rhythm. Pulses are palpable and equal bilaterally. No lower extremity cyanosis or edema. Skin: Warm and dry. No rashes. Abdomen: Soft, non-tender, non-protuberant. No guarding, rigidity, or rebound. Bowel sounds are normal. No organomegaly or masses noted. Back: Normal alignment. No CVA tenderness. Extremities: Symmetrical. Full range of motion intact. Neurological: Alert and oriented, appropriately interactive, no focal deficits. Psych: Cooperative. Appropriate mood and affect. Speech is evenly metered. Thoughts are logically construed. ED Course Vital Signs 04/17/21 18:26 Temperature 97.8 F Pulse Rate 91 H Respiratory 16 Rate Blood Pressure 127/70 [Right] O2 Sat by Pulse 98 Oximetry ED Medical Decision Making - Radiology Data [facility] [address] [place] [address] XRay Report Signed Patient: TEMO CHARLTON MR#: [id number] 7 : 1975 Acct:[id number] Age/Sex: 45 / F ADM Date: 04/17/21 Loc: ED Attending Dr: Ordering Physician: STACIE SAM Date of Service: 04/17/21 Procedure(s): XR chest routine 2V Accession Number(s): [id number] cc: STACIE SAM Fluoro Time In Minutes: CHEST 2 VIEWS INDICATION / CLINICAL INFORMATION: cough/wheezing, no hx asthma. COMPARISON: None available. FINDINGS: SUPPORT DEVICES: None. HEART / MEDIASTINUM: No significant abnormality. LUNGS / PLEURA: Pulmonary opacities are present within the right midlung and right lower lobe. To a lesser extent there are more subtle pulmonary opacities within the left lung base. No pleural effusion. The appearance is most suggestive for bilateral pneumonia. No pneum othorax. ADDITIONAL FINDINGS: No significant additional findings. IMPRESSION: 1. Bilateral pulmonary opacities, more notable in the right lung. The appearance is consistent with multifocal pneumonia. Please correlate with patient's Covid status. Signer Name: Yris Womack MD Signed: 04/17/2021 7:39 PM Workstation Name: [id number] Transcribed By: JR Dictated By: Yris Womack MD Electronically Authenticated By: Yris Womack MD Signed Date/Time: 04/17/211938 DD/ 38 TD/TT: - Medical Decision Making Differential diagnosis including but not limited to: pneumonia, influenza, asthma, viral upper respiratory infection On reevaluation, patient remains stable. No hypoxia, no respiratory distress, no tachypnea, no clinical evidence to suggest dehydration. Chest x-ray shows evidence of multifocal pneumonia. COVID-19 testing is currently unavailable at this facility however patient has tested negative for COVID-19 twice on an outpatient basis since symptom onset. Patient is an appropriate candidate for outpatient treatment. Patient will be discharged home with Amoxicillin + Azithromycin per current ATS/IDSA community-acquired pneumonia guidelines as well as beta agonist inhaler and antitussives. Patient has been provided with a copy of her chest x-ray results and instructed to bring them with her to her follow-up appointment with her primary care provider this week. Emphasized the importance of taking antibiotics until complete even if symptoms resolve. Emphasized the importance of following up with primary care provider, particularly if symptoms do not resolve with antibiotics, as patient may require advanced imaging and/or specialist consultation on an outpatient basis if symptoms persist. Patient expressed understanding and is agreeable to plan of care. Disease transmission precautions discussed. Strict return precautions provided. Repeat exam is unremarkable and benign. History, exam, diagnostic testing, and current condition do not suggest worrisome pathology to warrant further testing, continued ED treatment, admission, or surgical evaluation at this point. Given the low probability of a significant medical illness, it would be more likely to result in harm than benefit to perform further testing at this stage. Discussed findings, presumptive diagnosis, need for follow-up and specific signs/symptoms that should prompt immediate return to the emergency department. Instructions were explained in detail to the patient in addition to giving written discharge information. Patient expressed understanding and was given the opportunity to ask questions, all of which were satisfactorily answered prior to discharge home. Critical care attestation.: If time is entered above; I have spent that time in minutes in the direct care of this critically ill patient, excluding procedure time. ED Disposition Clinical Impression: Pneumonia Qualifiers: Pneumonia type: due to unspecified organism Laterality: bilateral Lung location: unspecified part of lung Qualified Code(s): J18.9 - Pneumonia, unspecified organism Disposition: 01 HOME / SELF CARE / HOMELESS Is pt being admited?: No Does the pt Need Aspirin: No Condition: Stable Instructions: Bacterial Pneumonia (ED), Community-Acquired Pneumonia, Adult, [id number] Additional Instructions: Take Tylenol every 4 hours and Motrin every 8 hours as needed for pain. Take Amoxicillin and Azithromycin with food as directed. Increase your dietary intake of probiotic rich foods while taking these medications. Take Tessalon as directed for cough. Use Albuterol inhaler as directed for wheezing. Honey is an excellent natural cough suppressant. Rest. Drink plenty of fluids. Wash hands frequently to prevent disease transmission. Do not share food or drinks with others. Follow-up with your primary care provider this week. Call tomorrow to schedule an appointment. Bring a copy of today's chest x-ray results with you to your follow-up appointment. Return to the emergency department immediately for new or worsening symptoms. Specifically, return to the emergency department immediately for fever, difficulty breathing, chest pain, dehydration, or any other concerns. Prescriptions: Albuterol Sulfate [Proair Respiclick] 90 mcg INHALATION Q6H #1 aer.pow.ba Benzonatate [Tessalon Perles] 200 mg PO Q8HR #30 capsule Amoxicillin [Trimox CAP] 1,000 mg PO Q8H 7 Days capsule Azithromycin [Zithromax Z-KENN] 250 mg PO DAILY 5 Days #6 tablet Referrals: PRIMARY CARE, [Primary Care Provider] - 3-5 Days Forms: Work/School Release Form(ED) Time of Disposition: 20:03
--- NOTE | 2021-04-17 19:44 | XRay Report ---
CHEST 2 VIEWS INDICATION / CLINICAL INFORMATION: cough/wheezing, no hx asthma. COMPARISON: None available. FINDINGS: SUPPORT DEVICES: None. HEART / MEDIASTINUM: No significant abnormality. LUNGS / PLEURA: Pulmonary opacities are present within the right midlung and right lower lobe. To a l zenon extent there are more subtle pulmonary opacities within the left lung base. No pleural effusion . The appearance is most suggestive for bilateral pneumonia. No pneumothorax. ADDITIONAL FINDINGS: No significant additional findings. IMPRESSION: 1. Bilateral pulmonary opacities, more notable in the right lung. The appearance is consistent with m ultifocal pneumonia. Please correlate with patient's Covid status. Signer Name: Yris Womack MD Signed: 04/17/2021 7:39 PM Workstation Name: [id number]
== END 2021-04-17 21:10 | disposition home or self-care (01) ==
LOC: ED 17:56
DX: J18.9 Pneumonia, unspecified organism (principal)
CPT/HCPCS: 71046; 99283